=== PATIENT | female | born 1970 | race Caucasian/White ===

== ENCOUNTER 2016-08-04 21:40 | Observation (INO) | payer BC ==
--- NOTE | ~2016-08-04 | EKG ---
PATIENT: LAURA MCNALLY UNIT #: [id number] Ventricular Rate: 77 BPM Atrial Rate: 77 BPM P-R Interval: 148 ms QRS Duration: 92 ms Q-T Interval: 414 ms QTC Calculation(Bezet): 468 ms P [place]: 43 degrees Calculated R [place]: 40 degrees Calculated T [place]: 32 degrees Diagnosis Line: Normal sinus rhythm Diagnosis Line: Normal ECG Diagnosis Line: When compared with ECG of 04-AUG-2016 20:58, Diagnosis Line: (unconfirmed) Diagnosis Line: T wave amplitude has increased in Anterior leads Diagnosis Line: Confirmed by BRENT LEON MD ([id number]) on 08/07/2016 Diagnosis Line: 7:19:48 AM INTERPRETING MD: EDWARD WOODY
--- NOTE | ~2016-08-04 | TH ---
Unit #: [id number] #: [id number] Patient: LAURA MCNALLY [id number] [address] [address] [id number] I MR#: [id number] NAME: LAURA MCNALLY : 1970 SEX: F STUDY DATE/TIME: 08/05/2016 UNIT: C3A PCU ROOM: 316 STUDY DESCRIPTION: Stress nuclear Attending Physician: Carmen Callejas M.D. Primary Care Physician: Tristan Streeter M.D. CARDIOLOGY REPORT EXAM Stress nuclear and ECG. INDICATION Chest pain, abnormal ECG for the diagnosis of obstructive coronary disease contributing to the patient's symptoms. SUMMARY The patient exercised on a Elian protocol to maximal effort. There was no chest pain noted. The resting ECG showed no diagnostic ST shifts. With stress, there were no diagnostic ST shifts, no significant dysrhythmias and no heart block. The patient completed 5 minutes, 52 seconds of exercise to maximal effort. Heart rate increased from 81 to 153 (87%) and blood pressure increased from 142/90 to 200/80. Perfusion images demonstrate apical thinning but no significant perfusion defects at rest or stress. There is suboptimal and nonhomogeneous uptake throughout the myocardium at both rest and stress. Gated perfusion wall motion analysis demonstrates normal wall motion throughout the myocardium with end-diastolic volume of 73 mL, ejection fraction greater than 65%. Planar images demonstrate no significant patient motion either at rest or stress. There is no significant lung uptake, LV or RV enlargement. Summed stress score is zero. IMPRESSION 1. Severe deconditioning. 2. Borderline hypertensive response to stress. 3. Normal heart rate response to stress. 4. Normal ECG response to stress. 5. No evidence of ischemia or infarction on stress nuclear study. 6. Normal wall motion with excellent ejection fraction. 7. The patient may be discharged today. 8. Advising patient to increase physical activity on a regular basis. Dictated by... Tono Anthony M.D. GERALDINE/laura TD: 08/06/2016 13:55 JOB #: [id number] Unit #: [id number] #: [id number] Patient: LAURA MCNALLY CARDIOLOGY REPORT Page 1 of 1 X Tono Anthony MD CARDIOLOGY REPORT
--- NOTE | ~2016-08-04 | HP ---
Unit #: [id number] #: [id number] Patient: LAURA MCNALLY [id number] [address] [place], [place] [address] [id number] I MR#: [id number] NAME: LAURA MCNALLY ROOM: 316 Age: 45 Sex: F Admission Date: 08/05/2016 : 1970 Attending Physician: Carmen Callejas M.D. Primary Care Physician: Tristan Streeter M.D. HISTORY AND PHYSICAL REASON FOR ADMISSION Chest pain. 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 Records indicate the patient had a normal cardiac catheterization in May 2009. Additional past medical history includes asthma, COPD, diabetes, obesity and tobaccoism. The patient reports that yesterday she was at rest when she felt intense left arm pain that radiated to mid sternal chest pain and then went to her neck and her jaw. She states the pain was associated with shortness of breath and some mild diaphoresis. The pain would not go away and the patient presented to the ER. The pain was relieved by nitro. The patient reports that she probably had the pain for about an hour. In the emergency department, EKG was unremarkable and her troponin was less than 0.05. PAST MEDICAL HISTORY 1. Cardiac cath June 09, 2009, showed normal coronaries and normal LV function. 2. Asthma. 3. COPD. 4. Diabetes. 5. Depression. 6. Migraines. PAST SURGICAL HISTORY 1. Cardiac cath. 2. Tubal ligation. 3. Dental surgery. 4. Left elbow surgery. ALLERGIES Guaifenesin. HOME MEDICATIONS 1. Claritin 10 mg p.o. daily. 2. Zyrtec 10 mg p.o. daily. 3. Hydrocodone one tab p.o. every six hours p.r.n. pain. 4. Ventolin two puffs inhalation every six hours p.r.n. shortness of breath. SOCIAL HISTORY Patient reports that she has been smoking cigarettes, about one pack a day for over 20 years. She rarely drinks alcohol. She denies any illicit Unit #: [id number] #: [id number] Patient: LAURA MCNALLY drug abuse. She works at an [employer] store. FAMILY HISTORY Includes asthma, COPD and diabetes. She reports that her sister of cardiomyopathy at the age of 33 from a virus. REVIEW OF SYSTEMS A ten point review of systems has been done and is considered otherwise negative as indicated in the HPI. PHYSICAL EXAMINATION GENERAL: The patient is awake, alert, in no acute distress and sitting up in her bed. VITAL SIGNS: Temperature 97.8, heart rate 80, respirations 18, blood pressure 127/80. She is oxygenating 99% on room air. HEENT: Head is atraumatic, normocephalic. Pupils are equal, round and reactive. Extraocular movements are intact. No discharge from ears or nares. NECK: Supple. Trachea is midline. Normal thyromegaly or lymphadenopathy is appreciated. Normal carotid upstrokes. CHEST: Lungs are clear to auscultation bilaterally. No wheezes, rales or rhonchi. CARDIOVASCULAR: S1, S2. Regular rate and rhythm. No murmurs, rubs or gallops appreciated. ABDOMEN: Soft, nontender, nondistended. Bowel sounds are positive in all four quadrants. No hepatosplenomegaly is appreciated. : Not done. SKIN: Appears to be warm, dry and intact. EXTREMITIES: No clubbing, edema or cyanosis. NEUROLOGICAL: Alert and oriented x4. Cranial nerves II-XII intact. No focal deficits. DIAGNOSTIC STUDIES LABORATORY: Laboratory results from August 04, 2016 are - white blood cells 8.5, hemoglobin 12.3, hematocrit 38, platelets 323, sodium 135, potassium 3.4, chloride 102, COD 23, BUN 8, creatinine 0.6, glucose 153. Point of care troponin was less than 0.05 in the ER. IMAGING: Chest x-ray shows nothing acute. ASSESSMENT 1. Chest pain. 2. Normal coronaries per cardiac catheterization in 2009. 3. Asthma. 4. Chronic obstructive pulmonary disease. 5. Diabetes. 6. Allergies. 7. Obesity with a BMI of greater than 30. 8. Possible obstructive sleep apnea. 9. Tobaccoism. PLAN Will continue patient's home meds and Accu-Cheks a.c. and h.s. with a low dose sliding scale insulin. Patient will have an exercise Cardiolite stress test in the morning. Her labs are currently pending. She needs a troponin, lipid panel and TSH. Will obtain a 2D echocardiogram and will ask the nurses to call when the troponin is resulted. Will continue the patient on Lovenox. Unit #: [id number] #: [id number] Patient: LAURA MCNALLY The attending has been changed to Dr. Anthony and he will evaluate the patient today. Dictated by Phylicia Baxter A.P.R.N. for Tono Anthony M.D. AM/celeste TD: 08/05/2016 09:44 JOB #: [id number] HISTORY AND PHYSICAL Page 1 of 1 X Phylicia Baxter APRN X HISTORY AND PHYSICAL
--- NOTE | ~2016-08-04 | DS ---
Unit #: [id number] #: [id number] Patient: LAURA MCNALLY [id number] [address] [address] [id number] I MR#: [id number] NAME: LAURA MCNALLY ROOM: 316 Age: 45 Sex: F Admission Date: 08/05/2016 : 1970 Discharge Date: 08/05/2016 Attending Physician: Carmen Callejas M.D. Primary Care Physician: Tristan Streeter M.D. DISCHARGE SUMMARY DISCHARGE DIAGNOSES 1. Atypical chest pain. 2. Normal catheter in 2009 with normal coronaries. 3. Asthma/chronic obstructive pulmonary disease. 4. Diabetes. 5. Seasonal allergies. 6. Obesity with a BMI greater than 30. 7. Possible obstructive sleep apnea. 8. Tobaccoism. 9. Hyperlipidemia. DIAGNOSTIC DATA LABORATORY: EKG shows normal sinus rhythm. White blood cell count 7.7, hemoglobin 11. 8, hematocrit 36.8, platelets 282, sodium 136, potassium 3.8, chloride 104, CO2 23, glucose 106, BUN 8, creatinine 0.7, cholesterol 207, triglycerides 299, LDL 108, HDL 39. PROCEDURES The patient underwent an exercise Cardiolite stress test which was normal per Dr. Anthony. Full report is still pending. HOSPITAL COURSE The patient is a 45-year-old female who presented to the emergency department when she reports that she had pain at rest in her left arm that radiated to her chest, neck, then jaw. The patient presented to the emergency department. EKG was unremarkable. Troponin was less than 0.05. The patient underwent exercise Cardiolite stress test which was normal. I have discussed with Dr. Anthony and the patient is stable for discharge. DISCHARGE INSTRUCTIONS 1. The patient will be discharged home. 2. The patient will follow up with primary care physician in one week for hospital followup and referral for obstructive sleep apnea. 3. Healthy heart diet. 4. Activity as tolerated. 5. The patient is instructed to return to the emergency room if signs or symptoms worsen. DISCHARGE MEDICATIONS 1. Ventolin 2 puffs inhalation q.6 h. p.r.n. shortness of air. 2. Zyrtec 10 mg p.o. daily. 3. Claritin 1 tablet p.o. daily. Unit #: [id number] #: [id number] Patient: LAURA MCNALLY 4. Hydrocodone/acetaminophen 5/325 mg 1 tablet p.o. q.6 h. p.r.n. pain. 5. Lipitor 20 mg p.o. at nighttime. Dictated by... Phylicia Baxter A.P.R.N. AM/juan TD: 08/05/2016 16:00 JOB #: [id number] DISCHARGE SUMMARY Page 1 of 1 X Phylicia Baxter APRN X DISCHARGE SUMMARY
--- NOTE | ~2016-08-04 | EKG ---
PATIENT: LAURA MCNALLY UNIT #: [id number] Ventricular Rate: 98 BPM Atrial Rate: 98 BPM P-R Interval: 150 ms QRS Duration: 86 ms Q-T Interval: 364 ms QTC Calculation(Bezet): 464 ms P [place]: 58 degrees Calculated R [place]: 46 degrees Calculated T [place]: 36 degrees Diagnosis Line: Normal sinus rhythm Diagnosis Line: Normal ECG Diagnosis Line: When compared with ECG of 21-JAN-2014 07:29, Diagnosis Line: No significant change was found Diagnosis Line: Confirmed by JATINDER LAMAR MD ([id number]) on 08/08/2016 Diagnosis Line: 10:41:40 PM INTERPRETING MD: BRIANDA WOODY
--- NOTE | ~2016-08-04 | ST ---
Unit #: [id number] #: [id number] Patient: LAURA MCNALLY [id number] [address] [address] [id number] I MR#: [id number] NAME: LAURA MCNALLY : 1970 SEX: F STUDY DATE/TIME: 08/05/2016 UNIT: C3A PCU ROOM: [facility] STUDY DESCRIPTION: Stress ECG Attending Physician: Carmen Callejas M.D. Primary Care Physician: Tristan Streeter M.D. CARDIOLOGY REPORT EXAM Stress ECG. FINDINGS Result text under nuclear order number. Please see this order for result text. Dictated by... Gene Carranza/laura TD: 08/06/2016 14:00 JOB #: [id number] CARDIOLOGY REPORT Page 1 of 1 X Tono Anthony MD CARDIOLOGY REPORT
--- NOTE | ~2016-08-04 | CR72 ---
[facility] A Service of [facility] RADIOLOGY TEXT RESULTS PATIENT: LAURA MCNALLY LOCATION: [facility] 316-01 : [birth year] UNIT #: [id number] AGE: [address]: Carmen Callejas MD SEX: F ORDER DR: [id number] [facility] [address] [place], [place] [address] [id number] I MR#: [id number] Acc #: [id number] NAME: LAURA MCNALLY : 1970 SEX: F STUDY DATE/TIME: 08/04/2016 21:47 UNIT: [address] ROOM: [facility] STUDY DESCRIPTION: CR Chest Single View Portable Attending Physician: Carmen Callejas M.D. Ordering Physician: Vern Gonzalez D.O. Primary Care Physician: Tristan Streeter M.D. MEDICAL IMAGING REPORT This report is preliminary unless electronic signature is present EXAM Portable chest x-ray, 08/04/2016 HISTORY Hypoxia. Chest pain left side, short of air began today. FINDINGS AP radiograph of the chest is presented. Comparison 01/21/2014. Heart and mediastinum normal in size and contour. Lungs slightly lower in volume than on prior examination but there is no evidence of acute pulmonary disease, pleural effusion or pneumothorax. No suspicious nodule. Stable calcified granuloma right mid lung zone. No acute bony abnormality. Dictated by... Sajan Pelaez M.D. THIS IS AN ELECTRONICALLY VERIFIED REPORT Sajan Pelaez M.D. at 08/05/2016 8:05 PM Ira TD: 08/05/2016 06:38 JOB #: [id number] MEDICAL IMAGING REPORT Page 1 of 1 COPY
[2016-08-04 21:26] LABS: POC - CKMB <1.0 ng/mL (0.0-7.9); POC - TROPONIN <0.05 ng/mL (<=0.05)
[~2016-08-04 21:40] MED LIST: ACETAMINOPHEN PO; ADVAIR 2501 DISK W/D PO; ALBUTEROL17 GM INH; AMOXIL500 MG PO; BACTRIM DS TABL1 TA1 PO; COLACE PO; COMBIVENT U/D3 M1 INH; FLEXERIL10 M1 PO; FLONASE16 GM; GLUCOPHAGE XR500 MG PO; LEVAQUIN PO; LEVAQUIN750 M1 PO; LORTAB 5/500 TA1 TA2 PO; NICOTINE TRANSD21 MG EXT; NO MEDICATIONS; PREDNISONE PO; PRILOSEC20 MG PO; PROZAC PO; SINGULAIR PO; SYMBICORT 160/4.6 G1 IH; VICODIN 5/500 T1 TAB PO; VOLTAREN75 MG PO; [UNRECOGNIZED DRUG - OTHER]; [UNRECOGNIZED DRUG - REMARK]; [UNRECOGNIZED DRUG - REMARK]
[2016-08-04 22:19] LABS: BASOPHIL# 0.1 X10e3 (0-0.3); BASOPHIL% 0.7 % (0-2.5); EOSINOPHIL# 0.2 X10e3 (0-0.7); EOSINOPHIL% 2.2 % (0.0-7.0); HEMOGLOBIN 12.3 gm/dL (12.0-16.0); LYMPHOCYTE# 3.8 X10e3 (1.0-3.5); MEAN CELL VOLUME 80.7 FL (83-96); MEAN CORPUSCULAR HEMOGLOBIN 26.2 PG (28-34); MEAN CORPUSCULAR HGB CONC 32.5 g/dL (30-36); MONOCYTE# 0.4 X10e3 (0-1.0); MONOCYTE% 4.6 % (3.0-12.0); NEUTROPHIL% 47.5 % (40-75); PLATELET COUNT 323 X10e3 (140-420); RED BLOOD COUNT 4.71 X10e (3.90-5.30); RED CELL DISTRIBUTION WIDTH 14.4 % (11.0-15.5); WHITE BLOOD COUNT 8.5 X10e3 (4.0-10.5)
[2016-08-04 22:20] LABS: DIFF IND NO
[2016-08-04 22:34] LABS: PARTIAL THROMBOPLASTIN TIME 26.6 SECONDS (23.5-31.3); PROTHROMBIN TIME (PATIENT) 10.5 SECONDS (9.6-11.5)
[2016-08-04 22:53] LABS: BILIRUBIN,TOTAL 0.3 mg/dL (0.2-2.0); BUN/CREATININE RATIO 13.33; CALCIUM SERUM 8.7 mg/dL (8.4-10.2); CREATININE SERUM 0.6 mg/dL (0.6-1.4); GLOM FILT RATE Estimated 109.3 mL/min (>60); POTASSIUM 3.4 mmol/L (3.5-5.1); PROTEIN TOTAL SERUM 7.4 g/dL (6.0-8.3)
[2016-08-04 22:55] LABS: BILIRUBIN, DIRECT 0.1 mg/dL (0.0-0.2); BILIRUBIN,INDIRECT 0.2 mg/dL (0.0-0.9)
[2016-08-04 23:09] LABS: POC - CKMB <1.0 ng/mL (0.0-7.9); POC - TROPONIN <0.05 ng/mL (<=0.05)
[2016-08-05] MEDS ORDERED: CLARITIN10 M2 PO (01:51)
[2016-08-05] MEDS ORDERED: ZYRTEC10 M1 PO (01:51)
[2016-08-05] MEDS ORDERED: HYDROCODON-ACE1 EAC7 PO (01:52)
[2016-08-05] MEDS ORDERED: ALBUTEROL17 GM INH (01:53)
[2016-08-05 09:13] LABS: BASOPHIL# 0.1 X10e3 (0-0.3); BASOPHIL% 1.3 % (0-2.5); EOSINOPHIL# 0.3 X10e3 (0-0.7); EOSINOPHIL% 3.5 % (0.0-7.0); HEMATOCRIT 36.8 % (35.0-45.0); HEMOGLOBIN 11.8 gm/dL (12.0-16.0); LYMPHOCYTE# 3.7 X10e3 (1.0-3.5); LYMPHOCYTE% 47.9 % (17.0-45.0); MEAN CORPUSCULAR HEMOGLOBIN 26.1 PG (28-34); MEAN CORPUSCULAR HGB CONC 32.1 g/dL (30-36); MEAN PLATELET VOLUME 8.3 FL (6.5-11.5); MONOCYTE# 0.4 X10e3 (0-1.0); MONOCYTE% 5.8 % (3.0-12.0); NEUTROPHIL# 3.2 X10e3 (1.5-7.1); NEUTROPHIL% 41.5 % (40-75); PLATELET COUNT 282 X10e3 (140-420); RED BLOOD COUNT 4.54 X10e (3.90-5.30); RED CELL DISTRIBUTION WIDTH 14.9 % (11.0-15.5); WHITE BLOOD COUNT 7.7 X10e3 (4.0-10.5)
[2016-08-05 09:24] LABS: DIFF IND NO
[2016-08-05 09:48] LABS: BUN/CREATININE RATIO 11.42; CALCIUM SERUM 8.3 mg/dL (8.4-10.2); CREATININE SERUM 0.7 mg/dL (0.6-1.4); GLOM FILT RATE Estimated 103.9 mL/min (>60); POTASSIUM 3.8 mmol/L (3.5-5.1)
[2016-08-05 10:26] LABS: THYROID STIMULATING HORMONE 1.34 uIU/ml (0.34-5.60)
[2016-08-05 10:33] LABS: FREE THYROXIN (T4) 0.89 ng/dL (0.58-1.64)
[2016-08-05 12:47] LABS: CHOLESTEROL 207 mg/dL (0-200); HDL CHOLESTEROL 39 mg/dL (35-95); LDL CHOLESTEROL 108 mg/dL (-130); LDL/HDL RATIO 3 RATIO (0-4); TRIGLYCERIDES 299 mg/dL (10-160)
[2016-08-05] MEDS ORDERED: LIPITOR20 MG PO (14:54)
== END 2016-08-05 15:48 | disposition home or self-care (01) | DRG 313 ==
LOC: CED 21:40 → CEDOF 08-05 00:04 → C3A PCU 08-05 02:32
PROVIDERS: Emergency Medicine; Internal Medicine Cardiovascular Disease
DX: R07.89 Other chest pain (principal); J44.9 Chronic obstructive pulmonary disease, unspecified; J45.909 Unspecified asthma, uncomplicated; E11.9 Type 2 diabetes mellitus without complications; J30.2 Other seasonal allergic rhinitis; E66.9 Obesity, unspecified; Z68.30 Body mass index [BMI] 30.0-30.9, adult; E78.5 Hyperlipidemia, unspecified; F17.210 Nicotine dependence, cigarettes, uncomplicated; Z82.5 Family history of asthma and other chronic lower respiratory diseases; Z83.3 Family history of diabetes mellitus; Z82.49 Family history of ischemic heart disease and other diseases of the circulatory system
CPT/HCPCS: 36415; 71010; 78452; 80048; 80061; 80076; 82553; 82947; 84439; 84443; 84484; 85025; 85610; 85730; 93005; 93017; 93306; 96374; 99285; A9500; G0378; J1650